=== PATIENT | male | born 1950 | race Caucasian/White ===

== ENCOUNTER 2024-08-11 16:52 | Emergency (ER) | payer BC, MEDICARE, OTHER ==
[2024-08-11 17:14] LABS: BASOPHILS ABSOLUTE AUTO 0.04 K/uL (0.00-0.20); BASOPHILS PERCENT AUTO 0.6 % (0.0-2.0); EOSINOPHILS ABSOLUTE AUTO 0.19 K/uL (0.00-0.50); EOSINOPHILS PERCENT AUTO 2.8 % (0.0-5.0); HEMOGLOBIN 15.4 g/dL (13.1-16.8); IMMATURE GRAN ABSOLUTE AUTO 0.01 10^3/uL (0.00-0.04); IMMATURE GRAN PERCENT AUTO 0.1 % (0.0-0.4); LYMPHOCYTES ABSOLUTE AUTO 2.04 K/uL (0.50-3.50); MEAN CORPUSCULAR HEMOGLOBIN 33.8 pg (28.2-33.3); MEAN CORPUSCULAR HGB CONC 34.2 g/dL (31.7-36.0); MEAN CORPUSCULAR VOLUME 98.7 fL (84.0-98.0); MONOCYTES ABSOLUTE AUTO 0.73 K/uL (0.00-1.00); MONOCYTES PERCENT AUTO 10.7 % (2.0-14.0); NEUTROPHILS PERCENT AUTO 55.8 % (45.0-80.0); PLATELET COUNT,PLT 215 K/uL (150-350); RED BLOOD CELL COUNT 4.56 M/uL (4.33-5.41); RED CELL DISTRIBUTION WIDTH 12.7 % (11.2-14.1); WHITE BLOOD CELL COUNT,WBC 6.8 K/uL (4.0-10.2)
[2024-08-11 17:33] LABS: ALBUMIN 3.8 g/dL (3.4-5.0); ANION GAP 11.9 meq/L (7-15); BILIRUBIN TOTAL 0.7 mg/dL (0.2-1.0); C-REACTIVE PROTEIN 0.17 mg/dL (0.05-0.30); CALCIUM 9.4 mg/dL (8.5-10.1); CARBON DIOXIDE,CO2 28.5 mmol/L (21.0-32.0); CREATININE 1.2 mg/dL (0.51-1.17); EST CRCL DRUG DOSING (CG) 49.11 mL/min; POTASSIUM,K 4.4 mmol/L (3.5-5.1); PROTEIN TOTAL,TP 7.9 g/dL (6.4-8.2)
== END 2024-08-11 17:50 | disposition home or self-care (01) ==
LOC: SUPCPDRO 16:52 → LL.ED 16:52
DX: G89.18 Other acute postprocedural pain (principal); Z88.2 Allergy status to sulfonamides; Z88.8 Allergy status to other drugs, medicaments and biological substances; Z79.899 Other long term (current) drug therapy
CPT/HCPCS: 36415; 80053; 85025; 86140; 99284